=== PATIENT | female | born 1945 | race Caucasian/White ===

== ENCOUNTER 2019-09-17 11:07 | Observation (INO) ==
[2019-09-17 12:11] LABS: Basophils # 0.1 10*3/uL (0.0-0.2); Basophils % 1.1 % (0.0-0.8); Eosinophils # 0.2 10*3/uL (0.0-0.87); Eosinophils % 2.1 % (0.00-10.9); Hematocrit 35.3 VOL% (35.7-47.0); Hemoglobin 11.6 GM/DL (12.0-16.0); Immature Granulocytes % 0.3 %; Immature Granulocytes Absolute 0.02 #; Lymphocytes # 1.7 10*3/uL (1.4-4.0); Lymphocytes % 23.2 % (21.3-54.2); Mean Corpuscular HGB Conc 32.9 GM/DL (32-36); Mean Corpuscular Volume 97.5 FL (87-102); Mean Platelet Volume 11.7 FL (9.6-12.0); Monocytes % 8.8 % (1.7-12.7); Neutrophils % 64.5 % (38.7-73.9); Platelet Count 235 T/CUMM (130-400); Red Blood Count 3.62 MC/CUMM (3.8-5.5); Red Cell Distribution Width 12.3 % (9.3-17.3); White Blood Count 7.5 T/CUMM (4-12)
[2019-09-17 12:31] LABS: Albumin 3.9 G/DL (3.4-5.0); Bilirubin,Total 0.6 MG/DL (0.2-1.0); Calcium 8.9 MG/DL (8.5-10.1); Osmolality,Calculated 268.2 MOS/KG (273-304); Total Protein 7.1 G/DL (6.4-8.3)
[2019-09-17] MEDS ORDERED: DEXAMETHASONE 4 MG/1 ML VIAL IV STA (14:42)
[2019-09-17] MEDS ORDERED: DEXAMETHASONE 10 MG/1 ML VIAL ONE (14:43)
[2019-09-17] MEDS ORDERED: ONDANSETRON 4 MG/2 ML VIAL IV PRN (15:32)
[2019-09-17] MEDS ORDERED: DEXTROSE 50% 25 GM/50 ML VIAL IV PRN (15:32)
[2019-09-17] MEDS ORDERED: ACETAMINOPHEN 325 MG TABLET PO PRN (15:32)
[2019-09-17] MEDS ORDERED: GLUCAGON 1 MG VIAL IM PRN (15:32)
[2019-09-17] MEDS ORDERED: traMADol 50 MG TABLET PO PRN (15:58)
[2019-09-17] MEDS ORDERED: MECLIZINE 25 MG TABLET PO PRN (15:58)
[2019-09-17] MEDS ORDERED: ENOXAPARIN 40 MG/0.4 ML SYRINGE SUBCUT SCH (16:00)
[2019-09-17 20:09] VITALS: BP 142/69
[2019-09-17] MEDS ORDERED: DEXAMETHASONE 4 MG TABLET PO SCH (21:00)
[2019-09-17] MEDS ORDERED: GABAPENTIN 300 MG CAPSULE PO SCH (21:00)
[2019-09-18] MEDS ORDERED: LEVOTHYROXINE 75 MCG TABLET PO SCH (06:30)
[2019-09-18] MEDS ORDERED: METOPROLOL SUCCINATE XL 25 MG TABLET PO SCH (09:00)
[2019-09-18] MEDS ORDERED: MELOXICAM 7.5 MG TABLET PO SCH (09:00)
[2019-09-18] MEDS ORDERED: CHOLECALCIFEROL 1,000 UNIT TABLET PO SCH (09:00)
[2019-09-18] MEDS ORDERED: ASPIRIN EC 81 MG TABLET PO SCH (09:00)
[2019-09-18] MEDS ORDERED: PANTOPRAZOLE 40 MG TABLET PO SCH (09:00)
[2019-09-18] MEDS ORDERED: MULTIVITAMIN (CENTRUM) TABLET PO SCH (09:00)
[2019-09-18] MEDS ORDERED: CYANOCOBALAMIN 500 MCG TABLET PO SCH (09:00)
== END 2019-09-17 23:56 | disposition designated cancer center or children's hospital (05) ==
LOC: N.EDINP 11:07 → N.ED 11:07 → N.TELEN 16:46
PROVIDERS: ADMIT Internal Medicine Geriatric Medicine; ATTEND Internal Medicine Geriatric Medicine

== ENCOUNTER 2019-10-20 10:50 | Inpatient (IN) ==
[2019-10-20] MEDS ORDERED: MECLIZINE 25 MG TABLET PO PRN (15:04)
[2019-10-20] MEDS ORDERED: traMADol 50 MG TABLET PO PRN (15:04)
[2019-10-20] MEDS ORDERED: DOCUSATE SODIUM 100 MG CAPSULE PO PRN (15:06)
[2019-10-20] MEDS ORDERED: GLUCAGON 1 MG VIAL IM PRN (15:06)
[2019-10-20] MEDS ORDERED: DEXTROSE 10% 250 ML BAG IV PRN (15:06)
[2019-10-20] MEDS ORDERED: ACETAMINOPHEN 325 MG TABLET PO PRN (15:06)
[2019-10-20 15:47] LABS: ABG Base Excess 0.8 MMOL/L (-2.5-2.5); ABG HCO3 25.1 MMOL/L (20-26); ABG Oxygen Saturation 97.4 % (95-100); ABG PCO2 34.1 MM HG (35-48); ABG PH 7.458 (7.35-7.45); ABG PO2 86.3 MM HG (80-95); ABG TCO2 21.1 MMOL/L (23-27)
[2019-10-20 16:30] LABS: Basophils % 0.1 % (0.0-0.8); Hematocrit 34.1 VOL% (35.7-47.0); Hemoglobin 12.1 GM/DL (12.0-16.0); Immature Granulocytes % 2.1 %; Lymphocytes # 0.7 10*3/uL (1.4-4.0); Mean Corpuscular HGB Conc 35.5 GM/DL (32-36); Mean Corpuscular Volume 90.7 FL (87-102); Mean Platelet Volume 11.3 FL (9.6-12.0); Monocytes % 4.6 % (1.7-12.7); Neutrophils % 88.2 % (38.7-73.9); Platelet Count 205 T/CUMM (130-400); Red Blood Count 3.76 MC/CUMM (3.8-5.5); Red Cell Distribution Width 12.1 % (9.3-17.3); White Blood Count 14.2 T/CUMM (4-12)
[2019-10-20 16:39] LABS: Calcium 8.2 MG/DL (8.5-10.1); Osmolality,Calculated 259.2 MOS/KG (273-304)
[2019-10-20 16:50] LABS: PT Patient Result 10.7 SECS (9.8-11.9)
[2019-10-20] MEDS: SODIUM CHLORIDE 0.9% 1,000 ML IV SCH (17:00)
[2019-10-20] MEDS: ALBUTEROL/IPRATROPIUM 3 ML NEB RESP TX SCH (18:40)
[2019-10-20] MEDS ORDERED: SERTRALINE 100 MG TABLET PO SCH (21:00)
[2019-10-20] MEDS ORDERED: GABAPENTIN 600 MG TABLET PO SCH (21:00)
[2019-10-21] MEDS: ALBUTEROL/IPRATROPIUM 3 ML NEB RESP TX SCH ×3 (01:10→12:27)
[2019-10-21] MEDS: SODIUM CHLORIDE 0.9% 1,000 ML IV SCH (05:37)
[2019-10-21 06:18] LABS: Basophils % 0.1 % (0.0-0.8); Eosinophils % 0.1 % (0.00-10.9); Hematocrit 34.6 VOL% (35.7-47.0); Hemoglobin 11.9 GM/DL (12.0-16.0); Immature Granulocytes % 2.5 %; Immature Granulocytes Absolute 0.35 #; Lymphocytes # 2.2 10*3/uL (1.4-4.0); Lymphocytes % 15.9 % (21.3-54.2); Mean Corpuscular HGB Conc 34.4 GM/DL (32-36); Mean Corpuscular Volume 94.3 FL (87-102); Mean Platelet Volume 10.7 FL (9.6-12.0); Neutrophils % 74.4 % (38.7-73.9); Platelet Count 178 T/CUMM (130-400); Red Blood Count 3.67 MC/CUMM (3.8-5.5); Red Cell Distribution Width 12.2 % (9.3-17.3)
[2019-10-21] MEDS ORDERED: LEVOTHYROXINE 75 MCG TABLET PO SCH (07:00)
[2019-10-21 07:01] LABS: Calcium 7.5 MG/DL (8.5-10.1); Osmolality,Calculated 262.7 MOS/KG (273-304); Risk Ratio 2.65; Thyroid Stimulating Hormone 0.009 uIU/ml (0.358-3.74); VLDL CHOLESTEROL 21.6 MG/DL
[2019-10-21] MEDS ORDERED: PANTOPRAZOLE 40 MG TABLET PO SCH (09:00)
[2019-10-21] MEDS ORDERED: GABAPENTIN 300 MG CAPSULE PO SCH (09:00)
[2019-10-21] MEDS ORDERED: CHOLECALCIFEROL 1,000 UNIT TABLET PO SCH (09:00)
[2019-10-21] MEDS ORDERED: ASPIRIN EC 81 MG TABLET PO SCH (09:00)
[2019-10-21] MEDS ORDERED: METOPROLOL SUCCINATE XL 25 MG TABLET PO SCH (09:00)
[2019-10-21] MEDS: POTASSIUM CHLORIDE 20 MEQ TABLET PO PRN ×2 (12:23→14:28)
[2019-10-21 14:05] VITALS: BP 146/69
== END 2019-10-21 15:41 | disposition home health service (06) | DRG 167 ==
LOC: N.CT 10:50 → SUATTDRO 12:53 → N.TELES 12:53
PROVIDERS: ADMIT Internal Medicine; ATTEND Family Medicine

== ENCOUNTER 2019-11-30 09:04 | Inpatient (IN) ==
[2019-11-30] MEDS ORDERED: SODIUM CHLORIDE 0.9% 500 ML IV STA (09:35)
[2019-11-30 10:09] LABS: Apearance,Urine CLEAR (Clear); Bilirubin,Urine Negative (Negative); Blood, Urine Negative (Negative); Glucose,Urine (UA) Negative (Negative); Hyaline Casts,Urine 4 /LPF (0-3); Ketones,Urine Negative (Negative); Mucus,Urine Occasional /LPF (Occasional); Nitrite,Urine Negative (Negative); Protein,Urine Negative; RBC,Urine 1 /HPF (0-4); Urine Color Yellow (Yellow); Urine Specific Gravity 1.021 (1.001-1.035); Urine Urobilinogen < 2.0 EU/DL (0.2-1.0); WBC,Urine <1 /HPF (0-6)
[2019-11-30 10:57] LABS: Basophils % 0.3 % (0.0-0.8); Eosinophils % 0.1 % (0.00-10.9); Hematocrit 27.6 VOL% (35.7-47.0); Hemoglobin 9.1 GM/DL (12.0-16.0); Immature Granulocytes % 11.4 %; Immature Granulocytes Absolute 1.06 #; Lymphocytes # 0.8 10*3/uL (1.4-4.0); Mean Corpuscular Volume 100.4 FL (87-102); Mean Platelet Volume 10.3 FL (9.6-12.0); Monocytes % 7.4 % (1.7-12.7); NRBC # 0.06 10*3/uL; Neutrophils % 71.8 % (38.7-73.9); Platelet Count 151 T/CUMM (130-400); Red Blood Count 2.75 MC/CUMM (3.8-5.5); Red Cell Distribution Width 15.5 % (9.3-17.3); White Blood Count 9.3 T/CUMM (4-12)
[2019-11-30 11:10] LABS: INR 1.1; PT Patient Result 11.4 SECS (9.8-11.9)
[2019-11-30 11:26] LABS: Alanine Aminotransferase 44 U/L (13-56); Alkaline Phosphatase 57 U/L (45-117); Aspartate Amino Transferase 23 U/L (0-37); Blood Urea Nitrogen 35 MG/DL (7-18); Calcium 7.2 MG/DL (8.5-10.1); Estimated Glom Filtration Rate 70 ML/MIN; Glucose 115 MG/DL (74-106); Osmolality,Calculated 285.5 MOS/KG (273-304); Total Protein 4.5 G/DL (6.4-8.3); Troponin I 0.022 NG/ML (0.00-0.045)
[2019-11-30 11:34] LABS: Band Neutrophils 5 % (0-10); Lymphocytes 15 % (20-55); Metamyelocytes 1 %; Nucleated Red Blood Cells 2 (0-5); Promyelocytes 1 %; Segmented Neutrophils 75 % (50-85); Total Cells Counted 100
[2019-11-30 11:35] LABS: Macrocytosis Slight
[2019-11-30] MEDS ORDERED: DEXTROSE 10% 250 ML BAG IV PRN (12:32)
[2019-11-30] MEDS ORDERED: GLUCAGON 1 MG VIAL IM PRN (12:32)
[2019-11-30] MEDS ORDERED: guaiFENesin/DM ER 600-30 MG TABLET PO PRN (12:32)
[2019-11-30] MEDS ORDERED: ONDANSETRON 4 MG/2 ML VIAL IV PRN (12:32)
[2019-11-30] MEDS ORDERED: ACETAMINOPHEN 325 MG TABLET PO PRN (12:32)
[2019-11-30] MEDS ORDERED: DOCUSATE SODIUM 100 MG CAPSULE PO PRN (12:32)
[2019-11-30] MEDS ORDERED: cefTRIAXone 1,000 MG in SYRINGE 1 EACH IV SCH (13:00)
[2019-11-30 13:04] LABS: Risk Ratio 2.78; Thyroid Stimulating Hormone 0.015 uIU/ml (0.358-3.74); VLDL CHOLESTEROL 31.8 MG/DL
[2019-11-30] MEDS ORDERED: MECLIZINE 25 MG TABLET PO PRN (13:27)
[2019-11-30] MEDS ORDERED: traMADol 50 MG TABLET PO PRN (13:27)
[2019-11-30] MEDS: AZITHROMYCIN INJ 500 MG in SODIUM CHLORIDE 0.9% 250 ML IV SCH (14:51)
[2019-11-30] MEDS: SODIUM CHLORIDE 0.9% 1,000 ML IV SCH (14:51)
[2019-11-30] MEDS ORDERED: SULFAMETHOX/TRIMETHOPRIM 800-160 MG TABLET ONE (15:46)
[2019-11-30] MEDS: SULFAMETHOX/TRIMETHOPRIM 800-160 MG TABLET PO SCH ×2 (15:54→21:48)
[2019-11-30] MEDS: traZODone 50 MG TABLET PO PRN (21:48)
[2019-11-30] MEDS: DEXAMETHASONE 4 MG TABLET PO SCH (21:49)
[2019-11-30] MEDS: SERTRALINE 100 MG TABLET PO SCH (21:49)
[2019-11-30] MEDS: POTASSIUM CHLORIDE 20 MEQ TABLET PO PRN (21:49)
[2019-11-30] MEDS: PANTOPRAZOLE 40 MG VIAL IV SCH (21:50)
[2019-11-30] MEDS: GABAPENTIN 300 MG CAPSULE PO SCH (21:50)
[2019-12-01] MEDS: POTASSIUM CHLORIDE 20 MEQ TABLET PO PRN ×2 (02:54→06:02)
[2019-12-01 05:52] LABS: Basophils % 0.3 % (0.0-0.8); Hematocrit 26.2 VOL% (35.7-47.0); Immature Granulocytes % 11.4 %; Immature Granulocytes Absolute 1.05 #; Lymphocytes # 0.5 10*3/uL (1.4-4.0); Lymphocytes % 5.3 % (21.3-54.2); Mean Corpuscular HGB Conc 34.4 GM/DL (32-36); Mean Corpuscular Volume 96.3 FL (87-102); Mean Platelet Volume 9.8 FL (9.6-12.0); Monocytes % 5.8 % (1.7-12.7); NRBC # 0.05 10*3/uL; Neutrophils % 77.2 % (38.7-73.9); Platelet Count 131 T/CUMM (130-400); Red Blood Count 2.72 MC/CUMM (3.8-5.5); Red Cell Distribution Width 15.2 % (9.3-17.3); White Blood Count 9.2 T/CUMM (4-12)
[2019-12-01] MEDS: LEVOTHYROXINE 75 MCG TABLET PO SCH (06:02)
[2019-12-01] MEDS: SODIUM CHLORIDE 0.9% 1,000 ML IV SCH ×2 (06:03→17:49)
[2019-12-01 06:09] LABS: Albumin 2.2 G/DL (3.4-5.0); Bilirubin,Total 0.6 MG/DL (0.2-1.0); Osmolality,Calculated 259.9 MOS/KG (273-304); Total Protein 4.8 G/DL (6.4-8.3)
[2019-12-01 06:21] LABS: Band Neutrophils 3 % (0-10); Lymphocytes 10 % (20-55); Myelocytes 1 %; Nucleated Red Blood Cells 1 (0-5); Segmented Neutrophils 83 % (50-85); Total Cells Counted 100
[2019-12-01 06:22] LABS: Hypochromasia 1+; Microcytosis Slight; Platelet Estimate Normal
[2019-12-01 08:45] LABS: Free T4 (Free Thyroxine) 0.72 NG/DL (0.76-1.46)
[2019-12-01] MEDS ORDERED: CYANOCOBALAMIN 500 MCG TABLET PO SCH (09:00)
[2019-12-01] MEDS ORDERED: PANTOPRAZOLE 40 MG TABLET PO SCH (09:00)
[2019-12-01] MEDS: SULFAMETHOX/TRIMETHOPRIM 800-160 MG TABLET PO SCH ×3 (10:07→21:57)
[2019-12-01] MEDS: ASCORBIC ACID 500 MG TABLET PO SCH (10:07)
[2019-12-01] MEDS: DEXAMETHASONE 4 MG TABLET PO SCH ×2 (10:07→21:56)
[2019-12-01] MEDS: GABAPENTIN 300 MG CAPSULE PO SCH ×2 (10:07→21:57)
[2019-12-01] MEDS: CHOLECALCIFEROL 400 UNIT TABLET PO SCH (10:08)
[2019-12-01] MEDS: VITAMIN E 1000 UNIT CAPSULE PO SCH (10:08)
[2019-12-01] MEDS: AZITHROMYCIN 250 MG TABLET PO SCH (10:08)
[2019-12-01] MEDS ORDERED: BISACODYL 10 MG SUPP RECTAL ONE (11:32)
[2019-12-01] MEDS: POLYETHYLENE GLYCOL POWDER 17 GM PACK PO SCH (13:28)
[2019-12-01] MEDS: PANTOPRAZOLE 40 MG VIAL IV SCH ×2 (13:50→21:58)
[2019-12-01] MEDS: AZITHROMYCIN INJ 500 MG in SODIUM CHLORIDE 0.9% 250 ML IV SCH ×3 (15:22→16:50)
[2019-12-01] MEDS ORDERED: cefTRIAXone 1,000 MG in SYRINGE 1 EACH IV SCH (16:00)
[2019-12-01] MEDS ORDERED: AZITHROMYCIN INJ 500 MG in SODIUM CHLORIDE 0.9% 250 ML IV SCH (16:30)
[2019-12-01 21:17] LABS: Hemoglobin 8.4 GM/DL (12.0-16.0)
[2019-12-01] MEDS: SERTRALINE 100 MG TABLET PO SCH (21:57)
[2019-12-01] MEDS: traZODone 50 MG TABLET PO PRN (21:58)
[2019-12-02 06:03] LABS: Basophils % 0.3 % (0.0-0.8); Hematocrit 25.5 VOL% (35.7-47.0); Hemoglobin 8.8 GM/DL (12.0-16.0); Immature Granulocytes % 13.1 %; Immature Granulocytes Absolute 1.18 #; Lymphocytes # 0.6 10*3/uL (1.4-4.0); Lymphocytes % 6.5 % (21.3-54.2); Mean Corpuscular HGB Conc 34.5 GM/DL (32-36); Mean Corpuscular Volume 96.2 FL (87-102); Mean Platelet Volume 10.3 FL (9.6-12.0); Monocytes % 6.8 % (1.7-12.7); NRBC # 0.06 10*3/uL; Neutrophils % 73.3 % (38.7-73.9); Platelet Count 152 T/CUMM (130-400); Red Blood Count 2.65 MC/CUMM (3.8-5.5); Red Cell Distribution Width 15.6 % (9.3-17.3)
[2019-12-02 06:23] LABS: Hypochromasia 1+; Lymphocytes 8 % (20-55); Microcytosis Slight; Platelet Estimate Adequate; Segmented Neutrophils 84 % (50-85); Total Cells Counted 100
[2019-12-02 06:39] LABS: Bilirubin,Total 0.5 MG/DL (0.2-1.0); Calcium 7.2 MG/DL (8.5-10.1); Osmolality,Calculated 258.9 MOS/KG (273-304)
[2019-12-02] MEDS: SODIUM CHLORIDE 0.9% 1,000 ML IV SCH (06:50)
[2019-12-02] MEDS: LEVOTHYROXINE 75 MCG TABLET PO SCH (06:51)
[2019-12-02] MEDS ORDERED: AZITHROMYCIN 250 MG TABLET PO SCH (09:00)
[2019-12-02] MEDS: POLYETHYLENE GLYCOL POWDER 17 GM PACK PO SCH (09:31)
[2019-12-02] MEDS: CHOLECALCIFEROL 400 UNIT TABLET PO SCH (09:31)
[2019-12-02] MEDS: DEXAMETHASONE 4 MG TABLET PO SCH (09:31)
[2019-12-02] MEDS: PANTOPRAZOLE 40 MG VIAL IV SCH (09:32)
[2019-12-02] MEDS: AZITHROMYCIN 250 MG TABLET PO SCH (09:32)
[2019-12-02] MEDS: ASCORBIC ACID 500 MG TABLET PO SCH (09:32)
[2019-12-02] MEDS: GABAPENTIN 300 MG CAPSULE PO SCH (09:32)
[2019-12-02] MEDS: VITAMIN E 1000 UNIT CAPSULE PO SCH (09:33)
[2019-12-02] MEDS: SULFAMETHOX/TRIMETHOPRIM 800-160 MG TABLET PO SCH (09:33)
[2019-12-02 11:53] VITALS: BP 135/78
[2019-12-02] MEDS ORDERED: FERROUS SULFATE 325 MG TABLET PO SCH (21:00)
== END 2019-12-02 15:00 | disposition home health service (06) | DRG 377 ==
LOC: EDBD → EDUNIT# → N.ED 09:04 → N.EDINP 12:32 → N.4E 20:15
PROVIDERS: ADMIT Internal Medicine; ATTEND Internal Medicine